=== PATIENT | male | born 1945 | race Caucasian/White ===

== ENCOUNTER → 2019-04-26 11:19 | Outpatient (CLI) | payer MEDICARE, SELFPAY ==
--- NOTE | ~2019-04-26 | US_ITS ---
US right upper quadrant DATE: 04/26/2019 11:45 INDICATION: Cirrhosis of liver TECHNIQUE: Real-time imaging of liver, pancreas, gallbladder COMPARISON: 11/16/2018 right upper quadrant abdominal ultrasound FINDINGS: There is heterogeneous echo texture of the liver, which may be consistent with the clinical history of cirrhosis. No focal hepatic mass lesion is appreciated. No pancreatic mass lesion is jennifer dent. No evidence of gallstones, gallbladder wall thickening or abnormal pericholecystic fluid collection. The common bile duct measures 2.8 mm, within normal range. IMPRESSION: Nonspecific heterogeneous echotexture of the liver, which may be consistent with clinical history of cirrhosis Reviewed, dictated and finalized at [facility]. Reviewed, dictated and finalized at location B. ETING DATABASE COORDINATOR IMPRESSION: Nonspecific heterogeneous echotexture of the liver, which may be co nsistent with clinical history of cirrhosis
--- NOTE | ~2019-04-26 | US_ITS ---
US retroperitoneal limited 04/26/2019 12:49 Procedure: Realtime transabdominal ultrasound of the kidneys and bladder. Indication: History of kidney stones. Comparison: CT dated 04/08 2004 Findings: There are bilateral renal cysts, measuring up to 1.1 cm on the right. Largest left renal cy st measures 3.8 x 1.8 x 2.6 cm. No renal stones or hydronephrosis. The right kidney measures 8.7 cm a nd left kidney measures 12.3 cm. Bladder within normal limits. Impression: 1: Bilateral renal cysts, largest in the left kidney measuring 3.8 cm maximum dimension. Reviewed, dictated and finalized at location A. TRIC GAS APPLIANCES DEMONSTRATOR Impression: 1: Bilateral renal cysts, largest in the left kidney measuring 3.8 cm maximum d imension.
== END ==
PROVIDERS: PCP Internal Medicine; Visit Provider Internal Medicine Gastroenterology
DX: K74.69 Other cirrhosis of liver (principal); Z87.442 Personal history of urinary calculi; N28.1 Cyst of kidney, acquired
CPT/HCPCS: 76705; 76775

== ENCOUNTER 2019-12-24 00:53 | Outpatient (CLI) | payer MEDICARE, SELFPAY ==
[2019-12-24 17:41] LABS: SARS-CoV-2 RNA PCR Negative
== END 2019-12-24 00:54 | disposition home or self-care (01) ==
LOC: ANHCOVIDDT 00:54
PROVIDERS: PCP Internal Medicine; Visit Provider Surgery
DX: Z01.812 Encounter for preprocedural laboratory examination (principal); Z20.828 Contact with and (suspected) exposure to other viral communicable diseases
CPT/HCPCS: 87635; C9803; U0003

== ENCOUNTER 2019-12-24 11:45 | Outpatient (CLI) | payer MEDICARE, SELFPAY ==
--- NOTE | 2019-12-24 11:49 | ECG_ITS ---
Measurements Intervals [place] Rate: 68 P: 47 DC: 163 QRS: -32 QRSD: 137 T: 31 QT: 396 QTc: 421 Interpretive Statements SINUS RHYTHM LEFT AXIS DEVIATION RIGHT BUNDLE BRANCH BLOCK ABNORMAL ECG Electronically Signed On 12-24-2019 12:57:09 CDT by Jose Alfredo Mcbride D.O.
[2019-12-24 12:22] LABS: Hematocrit 42.9 % (42.0-52.0); Hemoglobin 13.8 g/dL (14.0-18.0)
[2019-12-24 12:30] LABS: Anion Gap 5 mmol/L (8-16); Blood Urea Nitrogen 17 mg/dL (9-20); Calcium 9.3 mg/dL (8.4-10.2); Carbon Dioxide 35 mmol/L (22-30); Chloride 98 mmol/L (98-107); Estimated Glomerular Filt Rate 54; Glucose 233 mg/dL (75-110); Sodium 138 mmol/L (137-145)
[2019-12-24 12:31] LABS: Partial Thromboplastin Time 28.6 SECONDS (22.3-36.8)
[2019-12-24 12:48] LABS: INR 1.2; Prothrombin Time 14.7 Seconds (11.1-14.7)
== END 2019-12-24 11:46 | disposition home or self-care (01) ==
LOC: ANHSURGERY 11:49
PROVIDERS: Anesthesiology; PCP Internal Medicine; Visit Provider Surgery
DX: I10 Essential (primary) hypertension (principal); Z01.818 Encounter for other preprocedural examination; Z79.899 Other long term (current) drug therapy
CPT/HCPCS: 36415; 80048; 85014; 85018; 85610; 85730; 87635; 93005; C9803; U0003

== ENCOUNTER 2019-12-26 02:59 | Day surgery (SDC) | payer MEDICARE, SELFPAY ==
[2019-12-21 15:09] VITALS: BMI 30.7
[2019-12-26] VITALS (8 sets, daily range): BP systolic 97–148; BP diastolic 40–93; PULSE 59–73; RESP 12–18; TEMP 36.1–36.7; O2SAT 98–100
--- NOTE | 2019-12-26 09:14 | WPDANESEPPF ---
Anes - Initial Pre Proc Eval Procedure: Operation Date: 12/26/19 13:30 Proposed Procedures p Open Incarcerated Ventral Hernia Repair Possible Mesh - Cuauhtemoc Patel DO <Kaleb Gamble MD - Last Filed: 12/26/19 09:15> Date/Time: 12/26/19 09:14 <Kaleb Gamble MD - Last Filed: 12/26/19 09:15> Surgeon: Cuauhtemoc Patel DO <Kaleb Gamble MD - Last Filed: 12/26/19 09:15> Pre Op Diagnosis: Incarcerated Ventral Hernia <Kaleb Gamble MD - Last Filed: 12/26/19 09:15> Patient Data Age: 74 Gender: M Height: 1.8 m Weight: 100 kg <Kaleb Gamble MD - Last Filed: 12/26/19 09:15> Allergies Allergy/AdvReac Type Severity Reaction Status Date / Time Influenza Virus Vaccines AdvReac Unknown Swelling Verified 12/26/19 12:43 <Kaleb Gamble MD - Last Filed: 12/26/19 09:15> Home Medications Medication Instructions Recorded Confirmed Type alprazolam 0.5 mg tablet 0.5 mg PO BID 10/08/19 12/21/19 History baclofen 10 mg tablet 10 mg PO QID 10/08/19 12/21/19 History cholecalciferol (vitamin D3) 100 100 mcg PO DAILY 10/08/19 12/21/19 History mcg (4,000 unit) capsule diphenhydramine HCl 25 mg capsule 25 mg PO HS PRN 10/08/19 12/21/19 History hydrochlorothiazide 25 mg tablet 25 mg PO DAILY 10/08/19 12/21/19 History lisinopril 20 mg tablet 20 mg PO HS 10/08/19 12/21/19 History metoprolol tartrate 100 mg tablet 100 mg PO Q12H 10/08/19 12/21/19 History multivitamin,vp-qoue-jjdchhfn 1 tablet PO DAILY 10/08/19 12/21/19 History oxycodone 5 mg capsule 5 mg PO Q6H PRN 10/08/19 12/21/19 History testosterone cypionate 200 mg/mL 200 mg IM ONCE 08/03/20 10/16/20 History intramuscular kit venetoclax 100 mg tablet 300 mg PO DAILY 10/08/19 12/21/19 History oxycodone 10 mg tablet,crush 10 mg PO Q12H 11/27/19 12/21/19 History resistant,extended release 12 hr <Kaleb Gamble MD - Last Filed: 12/26/19 09:15> Patient hx anesthesia problems: none <Boby Jacob MD - Last Filed: 12/26/19 13:26> Family hx anesthesia problems: none <Boby Jacob MD - Last Filed: 12/26/19 13:26> [facility] Past Medical History Medical History: Medical History (Updated 12/26/19 @ 09:15 by Kaleb Gamble MD) BMI 30.0-30.9,adult CLL (chronic lymphocytic leukemia) History of hepatitis C History of kidney stones Hypertension Rheumatoid arthritis <Kaleb Gamble MD - Last Filed: 12/26/19 09:15> Surgical History Surgical History: Surgical History Arthropathy of left knee 2002 H/O repair of rotator cuff 2004, RYAN History of spinal fusion <Kaleb Gamble MD - Last Filed: 12/26/19 09:15> Family History Family History: Family History Mother Acute myocardial infarction <Kaleb Gamble MD - Last Filed: 12/26/19 09:15> Social History Social History: Social History Smoking status: Former smoker Second hand tobacco smoke exposure: No Additional smoking assessment comments: STATES QUIT 2004 Alcohol intake: never Living arrangements: with family Spiritual care concerns: No <Kaleb Gamble MD - Last Filed: 12/26/19 09:15> Anes - Eval Final PreProcedure Day of Procedure 12/26/19 09:14 <Kaleb Gamble MD - Last Filed: 12/26/19 09:15> Patient weight: obese <Kaleb Gamble MD - Last Filed: 12/26/19 09:15> Heart: regular rate and rhythm <Kaleb Gamble MD - Last Filed: 12/26/19 09:15> Lungs: clear to auscultation and normal air movement <Kaleb Gamble MD - Last Filed: 12/26/19 09:15> Airway: Mallampati scale class II <Kaleb Gamble MD - Last Filed: 12/26/19 09:15> Neurological: alert and oriented <Kaleb Gamble MD - Last Filed: 12/26/19 09:15> Last oral intake: >/= 8 hours <Kaleb Gamble
[2019-12-26] MEDS: LACTATED RINGERS 1,000 ML 30 ML IV CONT (12:00)
[2019-12-26] MEDS: KETOROLAC 15 MG/ML VIAL (*BKC) IV PUSH (12:23)
[2019-12-26] MEDS: ACETAMINOPHEN 500 MG TABLET 1000 MG PO (12:23)
[2019-12-26 12:42] LABS: Glucose Point of Care 159 (65-105)
--- NOTE | 2019-12-26 13:42 | WPDHPUPDATE1 ---
History and Physical Update Update Date/Time: 12/26/19 13:42 History and Physical has been reviewed, including an updated exam of the patient. There are NO changes in the patient's condition. Risks, benefits, and alternatives have been discussed and questions answered. Patient agrees to proceed with procedure.
[2019-12-26] MEDS: ceFAZolin 2 GM/D5W 50 ML 2 GM/50 ML BAG IVPB (13:58)
[2019-12-26] MEDS: BUPIVACAINE/EPINEPHRINE 0.5% 10 ML VIAL 30 ML INFILTRATE (14:18)
--- NOTE | 2019-12-26 14:34 | P.OP_ITS ---
Procedure Note - Detailed Date of procedure: 12/26/19 Pre-op diagnosis: Incarcerated Ventral Hernia Post-op diagnosis: same Procedure performed: Incarcerated Ventral hernia repair Description of procedure: Procedure as well as risks, benefits, and alternatives were discussed with the patient. Written consent was obtained and placed in chart prior to procedure. Patient was brought back to surgical suite. He was placed supine on operating table. To was then intubated by Anesthesia Department. His abdomen was prepped and draped in sterile fashion using chlorhexidine prep. 0.5% bupivacaine with epinephrine was infiltrated locally around the operative area. A 3 cm curvilinear incision was made just superior to the umbilicus using a 15 blade scalpel. Electrocautery was used for hemostasis and for dissection down through the subcutaneous fat. Hernia sac was encountered and this was carefully freed up from surrounding subcutaneous fat using electrocautery. The hernia sac was freed up all the way down to the level of the fascia, and then it was transected using electrocautery. The hernia sac was excised and sent to the lab for pathology. The umbilical stalk was then lifted off of the fascia with electrocautery. The hernia defect was then measured. This was measuring approximately 8 mm. The fascia of the hernia defect was then reapproximated over the mesh using 0 Ethibond [id number]-mw-runbn sutures. The repair was inspected and appeared secure. 0.5% bupivacaine with epinephrine was infiltrated around the fascia and subcutaneous space. The umbilical stalk was then reapproximated to the fascia using a 3 0 Vicryl simple interrupted suture. The deep dermis was reapproximated using 3 0 Vicryl simple interrupted sutures, and then the skin was approximated using 4 Monocryl running subcuticular suture. Exofin glue was then applied on top. The patient was then awakened from anesthesia, extubated, and transferred to recovery. Anesthesia: local (0.5% bupivacaine with epinephrine) Surgeon: Cuauhtemoc Patel DO Estimated blood loss (mL): 5 Pathology: yes (Hernia sac) Complications: No immediate complications Condition: stable Disposition: same day Findings: * Small incarcerated hernia noted superior to umbilicus. Hernia incarcerated with fat. Hernia sac excised and defect was small enough to repair primarily without mesh.
[2019-12-26] MEDS: oxyCODONE HCL (*CRX) 5 MG TAB IR PO (16:33)
== END 2019-12-26 16:45 | disposition home or self-care (01) ==
PROVIDERS: PCP Internal Medicine; Visit Provider Surgery
PROC: 0WQF0ZZ Repair Abdominal Wall, Open Approach (ICD-10-PCS; CPT 49561; principal; 2019-12-26 13:30)
DX: K43.6 Other and unspecified ventral hernia with obstruction, without gangrene (principal); I10 Essential (primary) hypertension; C91.10 Chronic lymphocytic leukemia of B-cell type not having achieved remission; M06.9 Rheumatoid arthritis, unspecified; Z86.19 Personal history of other infectious and parasitic diseases
CPT/HCPCS: 49561; 88302; A9270; J0690; J1100; J1885; J2405; J2704; J3010; J7120

== ENCOUNTER 2020-11-24 11:24 | Emergency (ER) | payer MEDICARE, SELFPAY ==
[2020-11-24] VITALS (9 sets, daily range): BP systolic 118–142; BP diastolic 67–92; PULSE 73–93; RESP 17–22; TEMP 36.8; O2SAT 95–97
--- NOTE | ~2020-11-24 | CT_ITS ---
EXAMINATION: CT abdomen pelvis wo con DATE: 11/24/2020 14:52 INDICATION: Left lower quadrant abdominal pain. TECHNIQUE: Computed tomography (CT) of the abdomen and pelvis was performed without intravenous contr ast. Automated exposure control and iterative reconstruction technique were employed. The dose-length product was 1352.40 mGy-cm. COMPARISON: CT abdomen 04/08/2004 FINDINGS: The visualized portions of the lung bases demonstrate mild atelectasis and mild chronic miguel a g disease. No pleural effusion. The heart size is normal. There are coronary artery calcifications. T here are calcifications of the aortic valve. No pericardial effusion. There is a right chest wall pac er with leads in the right atrium and right ventricle. There is bilateral gynecomastia. The liver dem onstrates hypertrophy of left lateral segment and surface nodularity, consistent with cirrhosis. The gallbladder is distended. There is severe splenomegaly measuring 20.9 cm. The pancreas and adrenal gl ands are normal. There are two 3 mm stones in right kidney. There are cysts in the kidneys measuring up to 4.0 cm on the left. There is a 3.1 cm mass in left kidney measuring soft tissue attenuation. Th ere is mild left hydronephrosis. There is a 4 mm stone in left kidney. The prostate is moderately enl arged. There is focal wall thickening of the bladder superiorly. There are no dilated loops of bowel . The appendix is normal. There is paraesophageal, gastrohepatic, periportal, mesenteric, aortocaval, left para-aortic, and left external iliac lymphadenopathy. For example, an aortocaval node measures 3.8 x 2.5 cm. There is trace ascites. There is severe lumbar spondylosis. There are changes of anteri or and posterior fusion procedures from L3 to L5. IMPRESSION: 1. Focal wall thickening of the bladder superiorly suspicious for urothelial carcinoma. 2. Mild left hydronephrosis, new from 04/08/04. 3. Small bilateral nonobstructing kidney stones. 4. Abdominal and pelvic lymphadenopathy, consistent with leukemia. 5. Severe splenomegaly. 6. Cirrhosis of the liver. 7. 3.1 cm left kidney mass, which may be a hemorrhagic cyst or less likely a neoplasm. Abdomen CT wit hout and with contrast is recommended. 8. Gallbladder distention, which may be secondary to fasting. Correlate with physical exam to exclude acute cholecystitis. Reviewed, dictated and finalized at location A. IMPRESSION: 1. Focal wall thickening of the bladder superiorly suspicious for urothelial ca rcinoma. 2. Mild left hydronephrosis, new from 04/08/04. 3. Small bilateral nonobstructing kidney stones. 4. Abdominal and pelvic lymphadenopathy, consistent with leukemia. 5. Severe splenomegaly. 6. Cirrhosis of the liver. 7. 3.1 cm left kidney mass, which may be a hemorrhagic cyst or less likely a ne oplasm. Abdomen CT without and with contrast is recommended. 8. Gallbladder distention, which may be secondary to fasting. Correlate with ph ysical exam to exclude acute cholecystitis.
--- NOTE | ~2020-11-24 | CT_ITS ---
EXAMINATION: CT brain wo con DATE: 11/24/2020 14:52 INDICATION: Confusion. Tinnitus. TECHNIQUE: Computed tomography (CT) of the head was performed without intravenous contrast. The mA wa s adjusted according to patient size. Iterative reconstruction technique was employed. The dose-lengt h product was 681.00 mGy-cm. COMPARISON: None FINDINGS: There is no intracranial hemorrhage, acute infarction, or abnormal intracranial mass lesion . The ventricles are normal in size. There is mucosal thickening in the paranasal sinuses. There is n ear complete opacification of right maxillary sinus with thickening and sclerosis of the sinus villagran, consistent with chronic sinusitis. The mastoid air cells are normal. The orbits are normal. IMPRESSION: 1. Normal brain. 2. Chronic sinusitis. Reviewed, dictated and finalized at location A.
--- NOTE | 2020-11-24 11:46 | ECG_ITS ---
Measurements Intervals [place] Rate: 82 P: 58 PA: 156 QRS: -82 QRSD: 182 T: 87 QT: 447 QTc: 524 Interpretive Statements ATRIAL SENSE- ELECTRONIC VENTRICULAR PACEMAKER NO FURTHER INTERPRETATION IS POSSIBLE ATYPICAL ECG Electronically Signed On 11-24-2020 12:40:13 CDT by Jose Alfredo Mcbride D.O.
--- NOTE | 2020-11-24 11:57 | ED.GENADULT ---
HPI - General Adult General Chief complaint: Abdominal Pain Stated complaint: left lower abd pain Time Seen by Provider: 11/24/20 11:34 Source: patient History of Present Illness HPI narrative: Patient is a 75 y/o male complaining of left lower abdominal pain starting this morning. He describes his pain as sharp and rates it as 10/10, but 8/10 currently. His pain radiates to his back pain. He states that the pain medication including oxycodone he takes for chronic back pain helps with his abdominal pain. He has no vomiting or diarrhea. He feels abdomen is swollen. He hears clicking sound in his head. He has no chest pain or SOB. He had pacemaker placement about 3 days ago at [facility]. His states that he seemed confused earlier this morning. Related Data Home Medications Medication Instructions Recorded Confirmed alprazolam 0.5 mg tablet 0.5 mg PO BID 10/08/19 02/08/20 baclofen 10 mg tablet 10 mg PO QID 10/08/19 02/08/20 cholecalciferol (vitamin D3) 100 100 mcg PO DAILY 10/08/19 02/08/20 mcg (4,000 unit) capsule diphenhydramine HCl 25 mg capsule 25 mg PO HS PRN 10/08/19 02/08/20 hydrochlorothiazide 25 mg tablet 25 mg PO DAILY 10/08/19 02/08/20 lisinopril 20 mg tablet 20 mg PO HS 10/08/19 02/08/20 metoprolol tartrate 100 mg tablet 100 mg PO Q12H 10/08/19 02/08/20 multivitamin,rp-lddx-rwzwxfpv 1 tablet PO DAILY 10/08/19 02/08/20 testosterone cypionate 200 mg/mL 200 mg IM ONCE 10/08/19 02/08/20 intramuscular kit venetoclax 100 mg tablet 300 mg PO DAILY 10/08/19 02/08/20 oxycodone 10 mg tablet,crush 10 mg PO Q12H 11/27/19 02/08/20 resistant,extended release 12 hr acalabrutinib 100 mg capsule 100 mg PO Q12H 02/05/20 02/08/20 acyclovir PO PRN 02/05/20 02/08/20 ascorbic acid (vitamin C) 500 mg 500 mg PO DAILY 02/05/20 02/08/20 tablet,extended release famotidine 20 mg tablet 20 mg PO DAILY 02/05/20 02/08/20 prochlorperazine maleate 10 mg 10 mg PO Q8H PRN 02/05/20 02/08/20 tablet azelastine INTRANASAL 11/24/20 cephalexin 11/24/20 melatonin 5 mg PO HS 11/24/20 montelukast mg 11/24/20 braduugxaper-xqo-dnnh-FA-vit K tablet PO 11/24/20 [Adults Multivitamin] ondansetron HCl HS 11/24/20 oxycodone TID 11/24/20 vit C-vit A-oqskvp-ockuviak cap PO 11/24/20 [Ocuvite Lutein] Allergies Allergy/AdvReac Type Severity Reaction Status Date / Time latex Allergy Rash Verified 11/24/20 11:35 Influenza Virus Vaccines AdvReac Unknown Swelling Verified 11/24/20 11:35 Review of Systems Constitutional: Constitutional: Denies chills, Denies fever(s), Denies headache(s) and Denies weakness Eyes: Eyes: Denies blurry vision ENT: Denies headache(s) and Denies neck pain Cardiovascular: Cardiovascular: Denies chest pain and Denies dyspnea Respiratory: Respiratory: Denies cough and Denies dyspnea Gastrointestinal: Gastrointestinal: Reports abdominal pain, Denies diarrhea, Denies nausea and Denies vomiting Genitourinary: Genitourinary: Denies hematuria and Denies dysuria Musculoskeletal: Musculoskeletal: Reports back pain and Denies neck pain Neurologic: Reports confusion, Denies headache(s) and Denies weakness [facility] Past Medical History Medical History BMI 30.0-30.9,adult CLL (chronic lymphocytic leukemia) History of hepatitis C History of kidney stones Hypertension Rheumatoid arthritis Surgical History Surgical History Arthropathy of left knee 2002 H/O repair of rotator cuff 2004, RYAN History of spinal fusion History of ventral hernia repair 12/26/19: open incarcerated ventral hernia repair Family History Family History Mother Acute myocardial infarction Social History Social History Smoking status: Former smoker Second hand tobacco smoke exposure: No Additional smoking assessment comments: STAT
[2020-11-24] MEDS: SODIUM CHLORIDE 0.9% IV 1,000 ML 999 ML IV CONT (12:10)
[2020-11-24] MEDS: KETOROLAC 15 MG/ML VIAL (*BKC) IV PUSH (12:10)
[2020-11-24 12:59] LABS: Basophils Percent Auto 0.5 % (0.2-1.2); Eosinophils Percent Auto 0.8 % (0-4.4); Hematocrit 42.9 % (42.0-52.0); Hemoglobin 13.5 g/dL (14.0-18.0); Immature Granulocyte Absolute 0.11 K/mm3 (0.00-0.031); Immature Granulocyte Percent A 2.8 % (0-0.5); Immature Platelet Fraction Pct 7.8 % (0.9-11.2); Lymphocytes Absolute Auto 1.21 K/mm3 (0.9-3.2); Lymphocytes Percent Auto 30.9 % (18.3-44.2); Mean Corpuscular HGB Conc 31.5 g/dl (32-36); Mean Corpuscular Hemoglobin 28.1 pg (26-34); Mean Corpuscular Volume 89.4 fl (80-100); Mean Platelet Volume 12.4 fl (7.4-10.4); Monocytes Absolute Auto 0.4 K/mm3 (0.1-0.6); Monocytes Percent Auto 10.7 % (2.6-8.5); Neutrophils Absolute Auto 2.1 K/mm3 (1.3-6.7); Neutrophils Percent Auto 54.3 % (45.5-73.1); Platelet Count Result 48 k/mm3 (150-375); Red Cell Distribution Width 15.9 % (11.5-14.5); White Blood Count 3.9 K/mm3 (4.5-10.0)
[2020-11-24 13:50] LABS: Atypical Lymphocytes Present; Platelet Estimate Decreased (Adequate)
[2020-11-24 13:51] LABS: Ovalocytes 1+ (NORMAL)
[2020-11-24 14:02] LABS: Add Urine Microscopic? YES; Appearance Urine Clear (Clear); Bilirubin Urine Negative (Negative); Blood Urine 2+ (Negative); Color Urine Amber (Yellow); Glucose Urine UA Negative (Negative); Ketones Urine Trace mg/dL (Negative); Leukocyte Esterase Ur Negative LEU/UL (Negative); Mucus Urine Rare /lpf; Nitrate Urine Negative (Negative); Protein Urine 2+ mg/dL (Negative); RBC Urine 51-75 /hpf (0-2); Specific Grav Ur 1.018 (1.001-1.035); Squamous Epithelial Cell Urine Rare /hpf (Few); Urobilinogen Urine Negative mg/dL (<2.0)
[2020-11-24 14:08] LABS: Alanine Aminotransferase 14 U/L (4-50); Albumin Level 3.6 g/dL (3.5-5.1); Alkaline Phosphatase 80 U/L (38-126); Anion Gap 13 mmol/L (8-16); Aspartate Amino Transferase 36 U/L (17-59); Blood Urea Nitrogen 47 mg/dL (9-20); Calcium 9.1 mg/dL (8.4-10.2); Carbon Dioxide 23 mmol/L (22-30); Chloride 102 mmol/L (98-107); Estimated CRCL calculation 26 ml/min; Estimated Glomerular Filt Rate 23; Glucose 119 mg/dL (65-110); Potassium 3.8 mmol/L (3.4-5.0); Sodium 138 mmol/L (137-145)
[2020-11-24] MEDS: MORPHINE SULFATE (*CRX) 4 MG/ML INJ IV PUSH (14:21)
[2020-11-24 14:53] LABS: Troponin I 0.037 ng/mL (0.000-0.034)
[2020-11-24 17:55] LABS: EDCOVIDSCREEN Negative (Negative)
[2020-11-24 18:02] LABS: Troponin I 0.032 ng/mL (0.000-0.034)
--- NOTE | 2020-11-24 18:05 | PC.NURSE ---
made contact with [facility] to inform facility that pt covid rapid test came back negative
--- NOTE | 2020-11-24 19:57 | PC.NURSE ---
Called [facility] to give report on pt for Room [address] bed 1, spoke to Concepcion RN at this time. Sec notified to call for EMS transport. Report called to [phone].
[2020-11-24 20:02] LABS: Troponin I 0.031 ng/mL (0.000-0.034)
--- NOTE | 2020-11-24 20:05 | PC.NURSE ---
called [facility] to request transport. ETA 45 minutes.
--- NOTE | 2020-11-24 20:09 | PC.NURSE ---
[facility] called and had a 911 call. ETA update 2 hours.
--- NOTE | 2020-11-24 20:18 | PC.NURSE ---
called [facility] to request transport. ETA 2030
--- NOTE | 2020-11-24 20:33 | PC.NURSE ---
[facility] called with ETA update. ETA [id number]
--- NOTE | 2020-11-24 21:27 | PC.NURSE ---
[facility] here. Cancelled [facility].
== END 2020-11-24 21:34 | disposition short-term general hospital (02) ==
PROVIDERS: Emergency Provider Emergency Medicine; PCP Internal Medicine
DX: N17.9 Acute kidney failure, unspecified (principal); N13.30 Unspecified hydronephrosis; C91.10 Chronic lymphocytic leukemia of B-cell type not having achieved remission; Z20.822 Contact with and (suspected) exposure to COVID-19; M06.9 Rheumatoid arthritis, unspecified; Z95.0 Presence of cardiac pacemaker; Z86.19 Personal history of other infectious and parasitic diseases; Z87.442 Personal history of urinary calculi; Z98.1 Arthrodesis status; Z87.891 Personal history of nicotine dependence; J32.9 Chronic sinusitis, unspecified; R16.1 Splenomegaly, not elsewhere classified; K74.60 Unspecified cirrhosis of liver; N28.89 Other specified disorders of kidney and ureter; N20.0 Calculus of kidney
CPT/HCPCS: 36415; 70450; 74176; 80053; 81001; 84484; 85025; 85055; 87086; 87426; 93005; 96361; 96365; 96375; 99285; C9803; J0696; J1885; J2270; J7030